=== PATIENT | female | born 1990 | race Caucasian/White ===

== ENCOUNTER 2017-10-30 15:37 | Day surgery (SDC) | payer MEDICAID ==
[2017-10-30 16:50] LABS: ADD MAN DIFF? NO
[2017-10-30 16:53] LABS: WHITE BLOOD COUNT 10.1 10^3/ul (4.8-10.8)
[2017-10-30 16:53] LABS: BASOPHILS % 0.3 % (0.0-2.0); EOSINOPHILS # 0.2 10^3/ul (0.0-0.5); EOSINOPHILS % 1.5 % (0.0-7.0); HEMATOCRIT 39.1 % (37.0-47.0); HEMOGLOBIN 13.5 g/dl (12.0-16.0); LYMPHOCYTES # 2.6 10^3/ul (0.8-2.9); LYMPHOCYTES % 25.3 % (15.0-51.0); MEAN CORPUSCULAR HGB CONC 34.5 g/dl (32.0-37.0); MEAN CORPUSCULAR VOLUME 92.7 fl (82.0-101.0); MEAN PLATELET VOLUME 10.8 fl (7.4-10.4); MONOCYTES % 9.9 % (0.0-11.0); NEUTROPHIL # 6.3 10^3/ul (1.6-7.5); NEUTROPHILS % 62.1 % (39.0-77.0); PLATELET COUNT 166 10^3/UL (140-415); RED BLOOD COUNT 4.22 10^6/ul (4.20-5.40); RED CELL DISTRIBUTION WIDTH 11.9 % (11.5-14.5)
[2017-10-30] MEDS ORDERED: ONDANSETRON 4 MG INJ IV (17:30)
[2017-10-30] MEDS ORDERED: METOCLOPRAMIDE 10 MG INJ IV (17:30)
[2017-10-30] MEDS ORDERED: OXYCODONE/ACETAMINOPHEN (5/325) TAB PO (17:30)
[2017-10-30] MEDS ORDERED: FENTAnyl 50 MCG/ML VIAL IV ×2 (17:30)
[2017-10-30] MEDS ORDERED: DIPHENHYDRAMINE 50 MG INJ IV (17:30)
[2017-10-30] MEDS ORDERED: MIDAZOLAM 1 MG/ML 2 ML INJ IV (17:30)
[2017-10-30] MEDS ORDERED: CEFAZOLIN 1 GM INJ (17:47)
[2017-10-30] MEDS ORDERED: LIDOCAINE 2% (SDV) 5 ML INJ (17:47)
[2017-10-30] MEDS ORDERED: PROPOFOL 20 ML (17:47)
[2017-10-30] MEDS ORDERED: METOCLOPRAMIDE 10 MG INJ (17:53)
[2017-10-30] MEDS ORDERED: ONDANSETRON 4 MG INJ (17:53)
[2017-10-30] MEDS: MEPERIDINE 25 MG INJ IV (18:23)
[2017-10-30] MEDS: FENTAnyl 50 MCG/ML VIAL IV (18:23)
[2017-10-30] MEDS: DOXYCYCLINE 100 MG TAB PO (18:23)
[2017-10-30] MEDS: OXYCODONE/ACETAMINOPHEN (5/325) TAB PO (19:26)
== END 2017-10-30 19:44 | disposition home or self-care (01) ==
LOC: SDS 15:37
DX: O02.1 Missed abortion (principal)
CPT/HCPCS: 59820; 85025; 86850; 86900; 86901; 88305

== ENCOUNTER 2017-11-02 14:42 | Emergency (ER) | payer MEDICAID ==
[2017-11-02 15:50] LABS: URINE BLOOD (Dip) POC 3+ (NEGATIVE); URINE GLUCOSE (Dip) POC Negative (NEGATIVE); URINE KETONES (Dip) POC Negative (NEGATIVE); URINE LEUKOCYTE EST (Dip) POC Trace (NEGATIVE); URINE NITRITE (Dip) POC Negative (NEGATIVE); URINE TOTAL PROTEIN POC Negative (NEGATIVE)
== END 2017-11-02 17:12 | disposition home or self-care (01) ==
LOC: FTE 14:42
DX: R10.2 Pelvic and perineal pain (principal)
CPT/HCPCS: 76856; 81003; 81025; 99284-25